=== PATIENT | female | born 1955 | race Caucasian/White ===

== ENCOUNTER 2017-09-27 11:17 | Inpatient (IN) | payer OTHER ==
[2017-09-27 11:52] LABS: ADD MAN DIFF? NO
[2017-09-27] MEDS: SOD CHLORIDE 0.9% 1,000 ML IV ×4 (11:59→17:30)
[2017-09-27] MEDS: morphine 4 MG/ML VIAL IV (11:59)
[2017-09-27] MEDS: ONDANSETRON 4 MG INJ IV ×4 (12:00→19:19)
[2017-09-27 12:04] LABS: WHITE BLOOD COUNT 11.2 10^3/ul (4.8-10.8)
[2017-09-27 12:04] LABS: BASOPHILS % 0.2 % (0.0-2.0); EOSINOPHILS # 0.1 10^3/ul (0.0-0.5); EOSINOPHILS % 0.4 % (0.0-7.0); HEMATOCRIT 44.7 % (37.0-47.0); HEMOGLOBIN 13.7 g/dl (12.0-16.0); LYMPHOCYTES % 9.1 % (15.0-51.0); MEAN CORPUSCULAR HEMOGLOBIN 21.6 pg (29.0-33.0); MEAN CORPUSCULAR HGB CONC 30.6 g/dl (32.0-37.0); MEAN CORPUSCULAR VOLUME 70.4 fl (82.0-101.0); MONOCYTE # 0.2 10^3/ul (0.3-0.9); MONOCYTES % 1.7 % (0.0-11.0); NEUTROPHIL # 9.8 10^3/ul (1.6-7.5); NEUTROPHILS % 88.1 % (39.0-77.0); PLATELET COUNT 350 10^3/UL (140-415); RED BLOOD COUNT 6.35 10^6/ul (4.20-5.40); RED CELL DISTRIBUTION WIDTH 17.2 % (11.5-14.5)
[2017-09-27 12:14] LABS: ALANINE AMINOTRANSFERASE 22 IU/L (13-69); ALBUMIN 5.1 g/dl (3.3-4.9); ALBUMIN/GLOBULIN RATIO 1.06; ALKALINE PHOSPHATASE 231 IU/L (42-121); ANION GAP 34 (8-16); ASPARTATE AMINO TRANSFERASE 17 IU/L (15-46); BILIRUBIN,INDIRECT 0.3 mg/dl (0-1.1); BILIRUBIN,TOTAL 0.3 mg/dl (0.2-1.3); BLOOD UREA NITROGEN 21 mg/dl (7-20); CARBON DIOXIDE 17 mmol/L (21-31); CHLORIDE 98 mmol/L (97-110); GLUCOSE 388 mg/dl (70-220); LIPASE 75 U/L (23-300); SODIUM 144 mmol/L (135-144); TOTAL PROTEIN 9.9 g/dl (6.1-8.1)
[2017-09-27 12:28] LABS: TROPONIN-I < 0.012 ng/ml (0.00-0.12)
[2017-09-27 12:37] LABS: LACTIC ACID 2.8 mmol/L (0.5-2.0)
[2017-09-27 13:47] LABS: URINE PH (Dip) POC 5.5 (5.0-8.5)
[2017-09-27 13:47] LABS: URINE BLOOD (Dip) POC 2+ (NEGATIVE); URINE KETONES (Dip) POC 4+ (NEGATIVE); URINE LEUKOCYTE EST (Dip) POC Negative (NEGATIVE); URINE NITRITE (Dip) POC Negative (NEGATIVE); URINE TOTAL PROTEIN POC 3+ (NEGATIVE)
[2017-09-27] MEDS: ACCU-CHEK XX ×8 (14:24→23:30)
[2017-09-27 14:31] LABS: AADO2 Arterial 60.3 mmHg (7.0-24.0); Allen Test ACCEPTAB; Arterial Base Excess -1.2 mmol/L (-3.0-3); Arterial COHb 0.4 % (0.0-3.0); Arterial HCO3 23.7 mmol/L (22.0-26.0); Arterial MetHb 0.6 % (0.0-1.5); Arterial Total Hemglobin 13.6 g/dl (12.0-18.0); Arterial pCO2 40.5 mmhg (35-45); MODE NASAL CANNULA; Site Left Radial
[2017-09-27] MEDS ORDERED: ONDANSETRON 4 MG INJ IV (16:00)
[2017-09-27] MEDS ORDERED: ACETAMINOPHEN 325 MG TAB PO (16:00)
[2017-09-27] MEDS: SOD CHLORIDE 0.9% 100 ML (16:05)
[2017-09-27] MEDS: IODIXANOL LOCM 100 ML BTL (16:06)
[2017-09-27] MEDS: INSULIN HUMAN REGULAR 100 UNIT in SOD CHLORIDE 0.9% 99 ML IV (16:31)
[2017-09-27] MEDS: CEFEPIME 1GM/50 ML (PMX) 50 ML IVPB (16:35)
[2017-09-27] MEDS: VANCOMYCIN 1 GM (PMX) 250 ML IVPB (16:35)
[2017-09-27 17:04] LABS: ANION GAP 25 (8-16); BLOOD UREA NITROGEN 21 mg/dl (7-20); CALCIUM 9.3 mg/dl (8.4-10.2); CARBON DIOXIDE 23 mmol/L (21-31); CHLORIDE 98 mmol/L (97-110); CREATININE 0.85 mg/dl (0.44-1.00); GLUCOSE 302 mg/dl (70-220); POTASSIUM 4.4 mmol/L (3.5-5.1); SODIUM 142 mmol/L (135-144)
[2017-09-27 17:05] LABS: LACTIC ACID 1.6 mmol/L (0.5-2.0)
[2017-09-27] MEDS ORDERED: ALBUTEROL 0.083% (NEB) 2.5 MG/3 ML AMP HHN (18:00)
[2017-09-27] MEDS ORDERED: SODIUM CHLORIDE 0.45% 500 ML BAG IV* (18:00)
[2017-09-27] MEDS ORDERED: INSULIN HUMAN REGULAR 100 UNIT in SOD CHLORIDE 0.9% 99 ML IV (18:00)
[2017-09-27] MEDS ORDERED: HYPOGLYCEMIA TREATMENT XX (18:00)
[2017-09-27] MEDS ORDERED: DEXTROSE 50% 50 ML SYRINGE IV ×2 (18:00)
[2017-09-27 18:22] LABS: HEMOGLOBIN A1C 8.7 % (0-5.9)
[2017-09-27] MEDS: LORAZEPAM 2 MG INJ IV (19:20)
[2017-09-27] MEDS: D5W-0.45 NACL + KCL 30 MEQ 1,000 ML IV (19:24)
[2017-09-27 20:37] LABS: ANION GAP 16 (8-16); BLOOD UREA NITROGEN 20 mg/dl (7-20); CALCIUM 8.3 mg/dl (8.4-10.2); CARBON DIOXIDE 29 mmol/L (21-31); CHLORIDE 108 mmol/L (97-110); CREATININE 0.68 mg/dl (0.44-1.00); GLUCOSE 110 mg/dl (70-220); POTASSIUM 4.1 mmol/L (3.5-5.1); SODIUM 149 mmol/L (135-144)
[2017-09-27] MEDS: SALMETEROL/FLUTICASONE 250/50 INHA INH (21:00)
[2017-09-27] MEDS: FAMOTIDINE 20 MG INJ IV (21:49)
[2017-09-27] MEDS: ENOXAPARIN 40 MG/0.4 ML SYG SC (21:49)
[2017-09-27] MEDS: hydrALAzine 20 MG INJ IV (21:49)
[2017-09-27] MEDS: metroNIDAZOLE 500 MG/NS (PMX) 100 ML IVPB (23:37)
[2017-09-28] MEDS ORDERED: hydrALAzine 20 MG INJ IV ×2 (01:00→09:00)
[2017-09-28] MEDS: DEXTROSE 5%-0.45% NACL 1,000 ML IV ×2 (01:08→18:30)
[2017-09-28] MEDS: INSULIN LISPRO 100 UNIT/ML VIAL SC (01:09)
[2017-09-28] MEDS: hydrALAzine 20 MG INJ IV (01:10)
[2017-09-28] MEDS: ACCU-CHEK XX ×12 (01:43→15:59)
[2017-09-28] MEDS: SOD CHLORIDE 0.45% 1,000 ML IV ×2 (02:13→14:00)
[2017-09-28] MEDS: ONDANSETRON 4 MG INJ IV ×3 (02:58→14:01)
[2017-09-28] MEDS: morphine 4 MG/ML VIAL IV (02:59)
[2017-09-28 06:53] LABS: ANION GAP 18 (8-16); BLOOD UREA NITROGEN 16 mg/dl (7-20); CALCIUM 8.7 mg/dl (8.4-10.2); CARBON DIOXIDE 26 mmol/L (21-31); CHLORIDE 104 mmol/L (97-110); CREATININE 0.78 mg/dl (0.44-1.00); GLUCOSE 176 mg/dl (70-220); POTASSIUM 3.8 mmol/L (3.5-5.1); SODIUM 144 mmol/L (135-144)
[2017-09-28] MEDS: FAMOTIDINE 20 MG INJ IV ×2 (08:54→20:27)
[2017-09-28] MEDS: METOCLOPRAMIDE 10 MG INJ IV (08:54)
[2017-09-28] MEDS: ASPIRIN (EC) 81 MG TAB PO (09:00)
[2017-09-28] MEDS: ATENOLOL 100 MG TAB PO (09:00)
[2017-09-28] MEDS: LABETALOL HCL 20MG INJ IV ×4 (09:09→15:06)
[2017-09-28] MEDS: ENOXAPARIN 40 MG/0.4 ML SYG SC (09:24)
[2017-09-28] MEDS ORDERED: GLUCAGON 1 MG INJ IM (09:30)
[2017-09-28] MEDS ORDERED: DEXTROSE 50% 50 ML SYRINGE IV ×3 (09:30→17:00)
[2017-09-28] MEDS ORDERED: GLUCOSE GEL 15 GRAM TUBE PO ×2 (09:30)
[2017-09-28] MEDS ORDERED: GLUCOSE GEL 15 GRAM TUBE BUCCAL (09:30)
[2017-09-28] MEDS: INSULIN GLARGINE [LANtus] 3 ML PEN SC (09:30)
[2017-09-28] MEDS: metroNIDAZOLE 500 MG/NS (PMX) 100 ML IVPB ×2 (09:37→20:27)
[2017-09-28 10:50] LABS: ANION GAP 20 (8-16); BLOOD UREA NITROGEN 15 mg/dl (7-20); CALCIUM 8.7 mg/dl (8.4-10.2); CARBON DIOXIDE 24 mmol/L (21-31); CHLORIDE 102 mmol/L (97-110); CREATININE 0.75 mg/dl (0.44-1.00); GLUCOSE 191 mg/dl (70-220); POTASSIUM 4.1 mmol/L (3.5-5.1); SODIUM 142 mmol/L (135-144)
[2017-09-28] MEDS: SALMETEROL/FLUTICASONE 250/50 INHA INH ×2 (11:39→22:06)
[2017-09-28] MEDS: INSULIN ASPART [NOVOLOG] 3 ML PEN SC ×2 (11:40→13:57)
[2017-09-28] MEDS: CLONIDINE 0.2 MG/24 HR PATCH TRANSDERM (11:41)
[2017-09-28 13:04] LABS: ANION GAP 22 (8-16); BLOOD UREA NITROGEN 14 mg/dl (7-20); CALCIUM 8.5 mg/dl (8.4-10.2); CARBON DIOXIDE 25 mmol/L (21-31); CHLORIDE 99 mmol/L (97-110); CREATININE 0.76 mg/dl (0.44-1.00); GLUCOSE 212 mg/dl (70-220); POTASSIUM 4.3 mmol/L (3.5-5.1); SODIUM 142 mmol/L (135-144)
[2017-09-28] MEDS ORDERED: LABETALOL HCL 20MG INJ IV (13:30)
[2017-09-28] MEDS ORDERED: niCARdipine-NS 0.1MG/ML DRIP 200 ML IV (14:00)
[2017-09-28 14:36] LABS: ANION GAP 21 (8-16); BLOOD UREA NITROGEN 14 mg/dl (7-20); CALCIUM 8.9 mg/dl (8.4-10.2); CARBON DIOXIDE 26 mmol/L (21-31); CHLORIDE 99 mmol/L (97-110); CREATININE 0.76 mg/dl (0.44-1.00); GLUCOSE 209 mg/dl (70-220); POTASSIUM 4.3 mmol/L (3.5-5.1); SODIUM 142 mmol/L (135-144)
[2017-09-28] MEDS: PROCHLORPERAZINE 10 MG INJ IV ×2 (15:37→22:06)
[2017-09-28] MEDS: niCARdipine 25 MG in SOD CHLORIDE 0.9% 240 ML IV (16:55)
[2017-09-28] MEDS ORDERED: ACCU-CHEK XX ×2 (17:00)
[2017-09-28] MEDS ORDERED: Regular insulin 100 Units/100 ml NS IV (17:00)
[2017-09-28] MEDS: morphine 2 MG INJ IV ×2 (17:14→22:06)
[2017-09-28] MEDS: INSULIN HUMAN REGULAR 100 UNIT in SOD CHLORIDE 0.9% 99 ML IV (17:24)
[2017-09-28 19:11] LABS: ANION GAP 16 (8-16); BLOOD UREA NITROGEN 13 mg/dl (7-20); CALCIUM 9.1 mg/dl (8.4-10.2); CARBON DIOXIDE 28 mmol/L (21-31); CHLORIDE 101 mmol/L (97-110); CREATININE 0.83 mg/dl (0.44-1.00); GLUCOSE 205 mg/dl (70-220); POTASSIUM 4.1 mmol/L (3.5-5.1); SODIUM 141 mmol/L (135-144)
[2017-09-28] MEDS ORDERED: INSULIN GLARGINE [LANtus] 3 ML PEN SC (20:00)
[2017-09-28] MEDS: DEXTROSE 50% 50 ML SYRINGE IV (20:28)
[2017-09-29] MEDS: DEXTROSE 5%-0.45% NACL 1,000 ML IV (05:06)
[2017-09-29] MEDS: morphine 2 MG INJ IV ×3 (05:09→23:34)
[2017-09-29 06:54] LABS: ANION GAP 14 (8-16); BLOOD UREA NITROGEN 17 mg/dl (7-20); CALCIUM 8.9 mg/dl (8.4-10.2); CARBON DIOXIDE 31 mmol/L (21-31); CHLORIDE 102 mmol/L (97-110); GLUCOSE 128 mg/dl (70-220); POTASSIUM 3.6 mmol/L (3.5-5.1); SODIUM 143 mmol/L (135-144)
[2017-09-29] MEDS: FAMOTIDINE 20 MG INJ IV ×2 (09:01→20:24)
[2017-09-29] MEDS: metroNIDAZOLE 500 MG/NS (PMX) 100 ML IVPB ×2 (09:01→20:24)
[2017-09-29] MEDS: ASPIRIN (EC) 81 MG TAB PO (09:01)
[2017-09-29] MEDS: ATENOLOL 100 MG TAB PO (09:02)
[2017-09-29] MEDS: ENOXAPARIN 40 MG/0.4 ML SYG SC (09:04)
[2017-09-29] MEDS: SALMETEROL/FLUTICASONE 250/50 INHA INH ×2 (09:06→22:06)
[2017-09-29] MEDS ORDERED: GLUCOSE GEL 15 GRAM TUBE BUCCAL (12:30)
[2017-09-29] MEDS ORDERED: DEXTROSE 50% 50 ML SYRINGE IV ×2 (12:30)
[2017-09-29] MEDS ORDERED: GLUCOSE GEL 15 GRAM TUBE PO ×2 (12:30)
[2017-09-29] MEDS ORDERED: GLUCAGON 1 MG INJ IM (12:30)
[2017-09-29] MEDS: INSULIN GLARGINE [LANtus] 3 ML PEN SC ×2 (12:57→20:29)
[2017-09-29] MEDS: METOCLOPRAMIDE 10 MG TAB PO ×3 (13:58→23:25)
[2017-09-29] MEDS ORDERED: hydrALAzine 20 MG INJ IV (14:30)
[2017-09-29] MEDS: SOD CHLORIDE 0.9% 1,000 ML IV (15:46)
[2017-09-29] MEDS: INSULIN ASPART [NOVOLOG] 3 ML PEN SC ×3 (17:35→20:23)
[2017-09-29] MEDS: METOPROLOL 25 MG TAB PO (20:25)
[2017-09-30] MEDS: SOD CHLORIDE 0.9% 1,000 ML IV (00:41)
[2017-09-30] MEDS: ACCU-CHEK XX (01:25)
[2017-09-30] MEDS: METOCLOPRAMIDE 10 MG TAB PO ×2 (05:32→12:49)
[2017-09-30] MEDS: SALMETEROL/FLUTICASONE 250/50 INHA INH (10:06)
[2017-09-30] MEDS: ASPIRIN (EC) 81 MG TAB PO (10:07)
[2017-09-30] MEDS: INSULIN ASPART [NOVOLOG] 3 ML PEN SC ×4 (10:19→13:21)
[2017-09-30] MEDS: INSULIN GLARGINE [LANtus] 3 ML PEN SC (10:19)
[2017-09-30] MEDS: ENOXAPARIN 40 MG/0.4 ML SYG SC (10:20)
[2017-09-30] MEDS: metroNIDAZOLE 500 MG TAB PO (10:25)
[2017-09-30] MEDS: METOPROLOL 25 MG TAB PO (10:25)
[2017-09-30] MEDS: FAMOTIDINE 20 MG INJ IV (10:25)
[2017-09-30 12:25] LABS: ADD MAN DIFF? NO
[2017-09-30 12:32] LABS: BASOPHILS % 0.4 % (0.0-2.0); EOSINOPHILS # 0.2 10^3/ul (0.0-0.5); EOSINOPHILS % 2.5 % (0.0-7.0); HEMATOCRIT 37.3 % (37.0-47.0); HEMOGLOBIN 11.4 g/dl (12.0-16.0); LYMPHOCYTES # 1.3 10^3/ul (0.8-2.9); LYMPHOCYTES % 17.2 % (15.0-51.0); MEAN CORPUSCULAR HEMOGLOBIN 22.1 pg (29.0-33.0); MEAN CORPUSCULAR HGB CONC 30.6 g/dl (32.0-37.0); MEAN CORPUSCULAR VOLUME 72.4 fl (82.0-101.0); MEAN PLATELET VOLUME 10.4 fl (7.4-10.4); MONOCYTE # 0.4 10^3/ul (0.3-0.9); NEUTROPHIL # 5.6 10^3/ul (1.6-7.5); NEUTROPHILS % 74.6 % (39.0-77.0); PLATELET COUNT 363 10^3/UL (140-415); RED BLOOD COUNT 5.15 10^6/ul (4.20-5.40); RED CELL DISTRIBUTION WIDTH 16.2 % (11.5-14.5)
[2017-09-30 12:32] LABS: WHITE BLOOD COUNT 7.5 10^3/ul (4.8-10.8)
[2017-09-30 12:58] LABS: ALANINE AMINOTRANSFERASE 16 IU/L (13-69); ALBUMIN 3.7 g/dl (3.3-4.9); ALBUMIN/GLOBULIN RATIO 0.97; ALKALINE PHOSPHATASE 139 IU/L (42-121); ANION GAP 14 (8-16); ASPARTATE AMINO TRANSFERASE 25 IU/L (15-46); BILIRUBIN,INDIRECT 0.5 mg/dl (0-1.1); BILIRUBIN,TOTAL 0.5 mg/dl (0.2-1.3); BLOOD UREA NITROGEN 16 mg/dl (7-20); CALCIUM 9.4 mg/dl (8.4-10.2); CARBON DIOXIDE 26 mmol/L (21-31); CHLORIDE 107 mmol/L (97-110); CREATININE 0.79 mg/dl (0.44-1.00); GLUCOSE 152 mg/dl (70-220); POTASSIUM 4.1 mmol/L (3.5-5.1); SODIUM 143 mmol/L (135-144); TOTAL PROTEIN 7.5 g/dl (6.1-8.1)
[2017-09-30 14:42] LABS: CHOL/HDL RATIO 4.2 RATIO; CHOLESTEROL 170 mg/dl (100-200); HDL CHOLESTEROL 40 mg/dl (35-98); LDL CHOLESTEROL,CALCULATED 109 mg/dl; TRIGLYCERIDES 103 mg/dl (0-149)
[2017-09-30 14:42] LABS: PHOSPHORUS 2.8 mg/dl (2.5-4.9)
== END 2017-09-30 16:29 | disposition home health service (06) | DRG 638 ==
LOC: TEL 15:51 → MS1 09-30 07:55 → E/R 11:17 → ICU 09-28 16:43 → TEL 09-29 22:13
PROVIDERS: Hospitalist
DX: E11.10 Type 2 diabetes mellitus with ketoacidosis without coma (principal); E87.2 Acidosis; I10 Essential (primary) hypertension; J44.9 Chronic obstructive pulmonary disease, unspecified; E11.65 Type 2 diabetes mellitus with hyperglycemia; E11.43 Type 2 diabetes mellitus with diabetic autonomic (poly)neuropathy; K31.84 Gastroparesis; G89.29 Other chronic pain; I25.10 Atherosclerotic heart disease of native coronary artery without angina pectoris; K21.9 Gastro-esophageal reflux disease without esophagitis; N76.0 Acute vaginitis; I25.2 Old myocardial infarction; Z91.14 Patient's other noncompliance with medication regimen; Z87.891 Personal history of nicotine dependence; Z79.82 Long term (current) use of aspirin; Z79.4 Long term (current) use of insulin; Z79.891 Long term (current) use of opiate analgesic
CPT/HCPCS: 36415; 36600; 71045; 74177; 80048; 80053; 80061; 81003; 82803; 82962; 83036; 83605; 83690; 83735; 84100; 84484; 85025; 87040; 87081; 93005; 93306; 96361; 96365; 96366; 96372; 96375; 96376; 99291-25